=== PATIENT | male | born 1960 | race Caucasian/White ===

== ENCOUNTER 2019-08-30 17:01 | Inpatient (IN) | payer BC, OTHER ==
[~2019-08-30 17:01] MED LIST: Iopamidol-370 76% 500 ML 1 ML ONE
[2019-08-30 17:55] LABS: #Lymphocytes 0.6 thou/uL (1.20-3.40); #Monocytes 1.6 thou/uL (0.11-0.59); #Neutrophils 16.8 thou/uL (1.40-6.50); %Basophils 0.1 % (0.0-1.0); %Eosinophils 0.1 % (0.0-10.0); %Lymphocytes 3.1 % (21.0-51.0); %Monocytes 8.3 % (0.0-10.0); %Neutrophils 88.5 % (42.0-75.0); Hemoglobin 16.4 g/dL (14.0-18.0); Mean Corpuscular HGB CONC 35.7 g/dL (32.0-36.0); Mean Corpuscular Hemoglobin 33.9 pg (27.0-31.0); Mean Corpuscular Volume 94.9 fL (78.0-98.0); Platelet Count 189 thou/uL (130-400); RBC Distribution Width 11.3 % (11.5-14.5); Red Blood Cell (RBC) Count 4.82 mill/uL (4.70-6.10)
[2019-08-30] MEDS ORDERED: Morphine 4 MG/ML VIAL ONE ×2 (18:06→21:07)
[2019-08-30] MEDS ORDERED: Ondansetron PF 4 MG/2 ML Vial ONE ×2 (18:06→21:32)
[2019-08-30 18:21] LABS: ALT (SGPT) 19 U/L (8-55); AST (SGOT) 14 U/L (5-34); Albumin 4.9 g/dL (3.5-5.0); Alkaline Phosphatase 66 U/L (40-110); Anion Gap 15 mmol/L (10-20); BUN (Urea Nitrogen) 12 mg/dL (8.4-25.7); Calc. Creatinine Clearance 0 mL/min (70-130); Calcium 9.6 mg/dL (7.8-10.44); Carbon Dioxide 26 mmol/L (22-29); Chloride 100 mmol/L (98-107); Estimated GFR-MDRD Greater than 90; Globulin 3.2 g/dL (2.4-3.5); Glucose 181 mg/dL (70-105); Lipase 4 U/L (8-78); Potassium 3.5 mmol/L (3.5-5.1); Protein, Total 8.1 g/dL (6.0-8.3); Sodium 137 mmol/L (136-145)
[2019-08-30 19:02] LABS: Bilirubin Negative (Negative); Blood, Urine Negative (Negative); Clarity Clear (Clear); Glucose, Urine (Dipstick) 50 mg/dL (Negative); Leukocyte Negative Leu/uL (Negative); Nitrite Negative (Negative); Protein, Urine (Dipstick) 10 mg/dL (Neg-Trace); Urobilinogen Normal mg/dL (Less than 2)
--- NOTE | 2019-08-30 19:25 | CT ---
CT abdomen and pelvis with IV contrast HISTORY: Right lower quadrant pain. FINDINGS: Mild linear scarring at the right posterior lung base. Solid organs of the abdomen are inta ct. Appendix is dilated and demonstrates a thickened wall. It contains fluid and multiple fecaliths, the largest at the ostium. There is small amount of adjacent fluid and significant stranding in the adjacent right retroperitoneal fat. No free air apparent. Scattered small diverticula of the colon without adjacent inflammation. Gallbladder is surgically absent. Postoperative changes of the pelvis, left hip, and thoracolumbar spine apparent. IMPRESSION : Severe acute appendicitis. Findings were called to Dr. Parson in the emergency department at 1916 hours. Code CR.
[2019-08-30] MEDS ORDERED: Piperacillin/Tazobactam 3.375 GM VIAL ONE (19:36)
[2019-08-30] MEDS ORDERED: Promethazine HCl 25 MG/ML VIAL IM PRN ×2 (20:31→22:49)
[2019-08-30] MEDS ORDERED: Ondansetron HCl/PF 4 MG/2 ML Vial IVP PRN ×2 (20:31→22:49)
[2019-08-30] MEDS ORDERED: Promethazine HCl 25 MG/ML VIAL SLOW IVP PRN ×2 (20:31→22:49)
[2019-08-30] MEDS ORDERED: Lidocaine 1% w/Epinephrine 1:100K 20 ML VIAL ONE (21:00)
[2019-08-30] MEDS ORDERED: Bupivacaine PF 0.5% 30 ML VIAL ONE (21:00)
[2019-08-30] MEDS ORDERED: Fentanyl 100 MCG/2 ML VIAL ONE ×2 (21:09→22:46)
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
[2019-08-30] MEDS ORDERED: Succinylcholine Chloride 20 MG/ML 10 ml SYRINGE FS ONE (21:32)
[2019-08-30] MEDS ORDERED: Glycopyrrolate 0.2 MG/ML 5 ML SYRINGE ONE (21:32)
[2019-08-30] MEDS ORDERED: PROPOFOL 200 MG/20 ML VIAL ONE (21:32)
[2019-08-30] MEDS ORDERED: PHENYLEPHRINE-NS 100 MCG/ML 10 ML SYRINGE ONE (21:32)
[2019-08-30] MEDS ORDERED: Rocuronium Bromide 10 MG/ML (10ML VIAL) ONE (21:32)
[2019-08-30] MEDS ORDERED: Dexamethasone 20 MG/5 ML VIAL ONE (21:32)
[2019-08-30] MEDS ORDERED: Lidocaine 1% PF 5 ML VIAL ONE (21:32)
[2019-08-30] MEDS ORDERED: HYDROmorphone 2 MG/ML VIAL SLOW IVP PRN (22:49)
[2019-08-30] MEDS ORDERED: HYDROmorphone 2 MG/ML VIAL ONE (23:12)
[2019-08-31] MEDS ORDERED: Fentanyl 100 MCG/2 ML VIAL SLOW IVP PRN ×2 (00:59)
[2019-08-31] MEDS ORDERED: HYDROcodone/Acetaminophen 7.5/325 mg Tablet PO PRN ×2 (00:59→20:34)
[2019-08-31] MEDS ORDERED: hydrALAZINE 20 MG/ML VIAL SLOW IVP PRN (00:59)
[2019-08-31] MEDS ORDERED: Ondansetron PF 4 MG/2 ML Vial IVP PRN (00:59)
[2019-08-31] MEDS ORDERED: Promethazine HCl 25 MG/ML VIAL IM PRN (00:59)
[2019-08-31] MEDS ORDERED: Dextrose 50% Abboject 50 ML SYRINGE SLOW IVP PRN (00:59)
[2019-08-31] MEDS ORDERED: Dextrose 5% in Water 1,000 ML IV PRN (00:59)
[2019-08-31] MEDS: Piperacillin/Tazobactam 3.375 GM in Sodium Chloride 0.9% 100 ML IVPB SCH ×4 (02:55→20:27)
[2019-08-31] MEDS: D5 1/2 NS w/20 mEq KCL 1,000 ML IV SCH ×3 (02:55→10:19)
[2019-08-31] MEDS: HYDROcodone/Acetaminophen 7.5/325 mg Tablet PO PRN ×5 (03:02→22:12)
[2019-08-31 04:46] VITALS: BMI 28.1
[2019-08-31] MEDS: Famotidine 20 MG TAB PO SCH ×2 (08:21→20:27)
[2019-08-31] MEDS: Famotidine/PF 20 mg/2ml Vial SLOW IVP SCH ×2 (08:30→20:41)
--- NOTE | 2019-08-31 10:30 | PRG ---
DATE OF SERVICE: 08/31/2019 SUBJECTIVE: Mr. Zurita is complaining of right-sided and flank pain. The nurse did start on the incentive spirometer and he is doing that now. He has already ambulated in the [facility] once. No nausea, but he does not have much of an appetite. OBJECTIVE: VITAL SIGNS: He is afebrile and his vital signs are stable. ABDOMEN: Soft, appropriately tender. The drain has serosanguineous fluid. ASSESSMENT: Postoperative day 1 perforated laparoscopic appendectomy. PLAN: Continue IV antibiotics today. I suspect he will be ready for discharge tomorrow. Job ID: [id number]
--- NOTE | 2019-08-31 12:43 | OP ---
DATE OF PROCEDURE: 08/30/2019 PREOPERATIVE DIAGNOSIS: Acute appendicitis. POSTOPERATIVE DIAGNOSIS: Acute appendicitis, perforated. PROCEDURES PERFORMED: Laparoscopic appendectomy with temporary drain placement by Dr. Galvin. COMPLICATIONS: None. DESCRIPTION OF PROCEDURE: The patient was taken to the operating room and laid supine on the operating room table. After general anesthetic was obtained, the abdomen was prepped and draped in a sterile fashion. A [place] had been placed. A curved incision was made below the umbilicus. Cautery was used to dissect down to and score the fascia. Abdominal cavity was entered bluntly using a Yenifer clamp. Holding stitch of PDS was placed on each side of the fascia. Enzo trocar was placed. High-flow pneumoperitoneum was obtained. Left lower quadrant 5 mm port and suprapubic 5 mm port were placed under direct visualization. There was significant inflammatory change in the right abdomen. The base of the appendix was found, and laparoscopic stapler was fired across the base of it. The appendix was bluntly dissected away from the retroperitoneal structures in the right upper quadrant. The appendiceal artery was found and torn and then clipped using laparoscopic clip device. The appendix was able to be bluntly dissected out of its surrounding inflammatory tissue, placed in EndoCatch bag, and brought out through the [place]. The right abdomen and pelvis were all irrigated copiously using sterile solution. There was no evidence of significant purulence at the time of surgery. This was all likely chronic perforation. A 19 round drain was brought out through the right lower quadrant incision and left in the area of the appendix and up toward the liver, sewn in place using a silk suture. All port sites were infiltrated using local anesthetic. All ports were removed under camera visualization. Pneumoperitoneum was let down. PDS was used to close the fascial defect below the umbilicus. All incisions were irrigated and closed using 4-0 Monocryl and Dermabond. The patient was sent to recovery in stable condition. All instrument counts, needle counts, and lap counts were correct. Job ID: [id number]
[2019-08-31] MEDS ORDERED: Docusate 100 MG CAP PO PRN (16:34)
[2019-08-31] MEDS ORDERED: Polyethylene Glycol 3350 17 GM Packet PO PRN (16:35)
[2019-08-31] MEDS ORDERED: Polyethylene Glycol 3350 17 GM Packet PO SCH (16:45)
[2019-08-31] MEDS ORDERED: Docusate 100 MG CAP PO SCH (16:45)
[2019-09-01] MEDS: HYDROcodone/Acetaminophen 7.5/325 mg Tablet PO PRN ×3 (02:00→10:49)
[2019-09-01] MEDS: Piperacillin/Tazobactam 3.375 GM in Sodium Chloride 0.9% 100 ML IVPB SCH ×2 (02:00→08:48)
[2019-09-01] MEDS: D5 1/2 NS w/20 mEq KCL 1,000 ML IV SCH (02:01)
[2019-09-01 07:43] LABS: #Eosinphils 0.1 thou/uL (0.0-0.7); #Lymphocytes 1.1 thou/uL (1.20-3.40); #Monocytes 1.2 thou/uL (0.11-0.59); #Neutrophils 10.2 thou/uL (1.40-6.50); %Basophils 0.2 % (0.0-1.0); %Eosinophils 0.5 % (0.0-10.0); %Lymphocytes 9.1 % (21.0-51.0); %Monocytes 9.7 % (0.0-10.0); %Neutrophils 80.5 % (42.0-75.0); Hemoglobin 14.1 g/dL (14.0-18.0); Mean Corpuscular HGB CONC 31.4 g/dL (32.0-36.0); Mean Corpuscular Hemoglobin 30.6 pg (27.0-31.0); Mean Corpuscular Volume 97.3 fL (78.0-98.0); Mean Platelet Volume 7.8 fL (7.4-10.4); Platelet Count 177 thou/uL (130-400); RBC Distribution Width 11.5 % (11.5-14.5); Red Blood Cell (RBC) Count 4.62 mill/uL (4.70-6.10); White Blood Cell (WBC) Count 12.6 thou/uL (4.8-10.8)
[2019-09-01 07:51] LABS: Anion Gap 18 mmol/L (10-20); BUN (Urea Nitrogen) 11 mg/dL (8.4-25.7); Calc. Creatinine Clearance 132 mL/min (70-130); Calcium 8.9 mg/dL (7.8-10.44); Carbon Dioxide 21 mmol/L (22-29); Chloride 100 mmol/L (98-107); Estimated GFR-MDRD Greater than 90; Glucose 175 mg/dL (70-105); Potassium 3.8 mmol/L (3.5-5.1); Sodium 135 mmol/L (136-145)
[2019-09-01] MEDS: Famotidine/PF 20 mg/2ml Vial SLOW IVP SCH (08:40)
[2019-09-01] MEDS: Famotidine 20 MG TAB PO SCH (08:47)
[2019-09-01] MEDS ORDERED: Lisinopril 20 MG TAB PO SCH (09:00)
--- NOTE | 2019-09-01 09:22 | DIS ---
DATE OF ADMISSION: 08/31/2019 DATE OF DISCHARGE: 09/01/2019 ADMITTING DIAGNOSIS: Perforated appendicitis. DISCHARGE DIAGNOSIS: Perforated appendicitis. PROCEDURES: Laparoscopic appendectomy with drain by [facility] without complication. CONDITION ON DISCHARGE: Improved. HOSPITAL COURSE: On postop day 1, the patient was tolerating his regular diet, although he was limited in appetite. He was having moderate to severe pain at his incisions and drain site. On postop day 2, the patient is doing well. His bloating is improved. He is tolerating the diet. He is ambulatory. He is urinating without difficulty. He is discharged home with drain in place. He will follow up with me next Tuesday in the office for drain removal. Prescriptions for [place], Zofran, and Augmentin sent to [facility] on [address]. Job ID: [id number]
--- NOTE | 2019-09-01 10:38 | EKG ---
Test Reason : Blood Pressure : / mmHG Vent. Rate : 103 BPM Atrial Rate : 103 BPM P-R Int : 128 ms QRS Dur : 104 ms QT Int : 346 ms P-R-T Axes : 009 011 -13 degrees QTc Int : 453 ms Sinus tachycardia Inferior infarct , age undetermined Abnormal ECG Confirmed by YAMILETH BRODERICK M.D. ([id number]), editor map RACIEL BOWMAN ([id number]) on 09/01/2019 10:37:52 AM Referred By: Confirmed By:YAMILETH BRODERICK M.D.
[2019-09-01 12:11] VITALS: BP 124/79; TEMP 99.4
--- NOTE | 2019-09-04 04:09 | PQF ---
EARNESTINE BOWMAN BRYAN DAVID MD [id number] [facility] A 330 [id number] CLINICAL DOCUMENTATION CLARIFICATION FORM: POST DISCHARGE Addendum to original discharge summary date: ____ Late entry note date: __ DATE:09/03/2019 ATTN: Lyle An Please exercise your independent, professional judgment in responding to the clarification form. Clinical indicators are provided on the bottom of this form for your review Please check appropriate box(es): [ ] Sepsis due to Ruptured Appendicitis [ ] Severe sepsis with acute organ dysfunction of: (Examples: respiratory failure, encephalopathy, acute kidney failure, other) [ ] Septic Shock [ X ] Localized infection without sepsis [ ] Other diagnosis [ ] Unable to determine In addition, please specify: Present on Admission (POA): [ ] Yes [ ] No [ ] Unable to determine For continuity of documentation, please document condition throughout progress notes and discharge summary. Thank You. CLINICAL INDICATORS - SIGNS / SYMPTOMS / LABS Laboratory 08/29- WBC 19.0, Plt count 189, Neutrophils 88.5 Vital signs BP 126/82, Pulse 116, Resp 18, temp 99.2 ED notes p2 SIRS scoring Yes, pt did meet at least 1 criteria H&P p1 08/29 presents with an 18-hour hx of pain in his RLL, described as sharp 10/10, does not radiate, hurts to move, associated with fever, no chills, associated with nausea without vomiting Pathology report the specimen is consistent with perforated or ruptured appendix with fecal material identified in the lumen RISK FACTORS H&P p1 08/29 Hypertension H&P p1 08/29 Acute Appendicitis OP Note p1 08/29 s/p lap appendectomy TREATMENTS: JUL 17 IV Zosyn 3.375gm JUL 17 IVF Ns 1L JUL 17 Pepcid 20mg Oral Lap Appendectomy 08/[address] Galvin Collected 08/29 Abdomen/Pelvis CT (This form is maintained as a part of the permanent medical record) 2014 [employer]. All Rights Reserved [email or web address]
== END 2019-09-01 12:38 | disposition home or self-care (01) | DRG 340 ==
LOC: ERS 17:01 → SDC/OP 21:34 → SURG A 08-31 00:38
PROVIDERS: ADMIT Surgery; ATTEND Surgery
PROC: 0DTJ4ZZ Resection of Appendix, Percutaneous Endoscopic Approach (ICD-10-PCS; principal; 2019-08-30)
DX: K35.32 Acute appendicitis with perforation, localized peritonitis, and gangrene, without abscess (principal); I10 Essential (primary) hypertension; Z79.899 Other long term (current) drug therapy
CPT/HCPCS: 36415; 74177; 80048; 80053; 81003; 83690; 85025; 88304; 93005; 96361; 96365; 96375; 96376; J1100; J1170; J2001; J2270; J2405; J2543; J2704; J3010; J3480; J3490; Q9967; S0020